=== PATIENT | female | born 1950 | race Caucasian/White ===

== ENCOUNTER 2019-11-15 17:42 | Inpatient (IN) | payer MEDICARE, BC ==
[~2019-11-15] VITALS: Ht 157.5 cm; Wt 52.6 kg
[2019-11-15 18:35] LABS: BASOPHILS 0.3 % (0-2); EOSINOPHILS 6.8 % (0-7); HEMATOCRIT 43.4 % (36.0-48.0); HEMOGLOBIN 14.5 g/dL (12-16); IMMATURE GRANULOCYTES 0.1 % (0-5); LYMPHOCYTES 21.6 % (15-50); MCHC 33.4 g/dL (31.0-37.0); MCV 95.8 fL (80.0-100.0); MEAN PLATELET VOLUME 9.2 fL (7.4-10.4); MONOCYTES 7.6 % (2-11); NEUTROPHILS 63.6 % (40-80); PLATELET COUNT 277 10x3/uL (130-400); RBC 4.53 10x6/uL (4.00-5.40); RDW 13.2 % (11.5-14.5)
[2019-11-15 18:43] LABS: BACTERIA MANY HPF (NONE SEEN); BILIRUBIN NEGATIVE (NEGATIVE); GRANULAR CAST 0-5 LPF (NONE SEEN); KETONE NEGATIVE (NEGATIVE); NITRITE POSITIVE (NEGATIVE); UROBILINOGEN NORMAL mg/dL (< 2)
[2019-11-15 18:44] LABS: CALC OSMOLALITY 275 mosm/kg (275-300); CALCIUM 9.6 mg/dL (8.5-10.1); CARBON DIOXIDE 30.4 mmol/L (21.0-32.0); CHLORIDE - SERUM 102 mmol/L (98-107); CREATININE - SERUM 0.9 mg/dL (0.6-1.3); GLUCOSE 105 mg/dL (74-106); POTASSIUM - SERUM 3.9 mmol/L (3.5-5.1); SODIUM 137 mmol/L (136-145); UREA NITROGEN 19 mg/dL (7-18); eGFR NON AFRICAN AMERICAN 66 mL/min (90-120)
[2019-11-15 18:53] LABS: ALBUMIN 4.1 g/dL (3.4-5.0); ALKALINE PHOSPHATASE 91 U/L (30-120); ALT (SGPT) 17 U/L (10-68); AMYLASE - SERUM 69 U/L (25-115); BILIRUBIN - TOTAL 0.34 mg/dL (0.2-1.3); LIPASE 80 U/L (73-393); PROTEIN - SERUM 7.8 g/dL (6.4-8.2)
[2019-11-15 18:56] LABS: TROPONIN-I < 0.017 ng/mL (0.000-0.060)
[2019-11-15 21:01] VITALS: BP 135/56
--- NOTE | 2019-11-15 22:50 | NUR ---
PT AMBULATED TO RESTROOM AT THIS TIME. VOIDED URINE ONLY. PERFORMS SELF CARE.
[2019-11-16 00:29] VITALS: BP 139/67
[2019-11-16 01:42] VITALS: BP 143/54
--- NOTE | 2019-11-16 01:45 | NUR ---
COVID SWAB SENT TO LAB AT THIS TIME.
[2019-11-16 06:30] LABS: BASOPHILS 0.1 % (0-2); EOSINOPHILS 0.5 % (0-7); HEMATOCRIT 38.8 % (36.0-48.0); HEMOGLOBIN 12.7 g/dL (12-16); IMMATURE GRANULOCYTES 0.2 % (0-5); LYMPHOCYTES 15.7 % (15-50); MCH 31.4 pg (26.0-34.0); MCHC 32.7 g/dL (31.0-37.0); MEAN PLATELET VOLUME 9.5 fL (7.4-10.4); MONOCYTES 4.3 % (2-11); NEUTROPHILS 79.2 % (40-80); PLATELET COUNT 241 10x3/uL (130-400); RBC 4.04 10x6/uL (4.00-5.40); RDW 13.4 % (11.5-14.5); WBC 9.9 10x3/uL (4.8-10.8)
[2019-11-16 06:43] LABS: ALBUMIN 3.2 g/dL (3.4-5.0); ALKALINE PHOSPHATASE 77 U/L (30-120); ALT (SGPT) 14 U/L (10-68); BILIRUBIN - TOTAL 0.36 mg/dL (0.2-1.3); CALC OSMOLALITY 273 mosm/kg (275-300); CALCIUM 8.5 mg/dL (8.5-10.1); CARBON DIOXIDE 25.5 mmol/L (21.0-32.0); CHLORIDE - SERUM 105 mmol/L (98-107); CREATININE - SERUM 0.5 mg/dL (0.6-1.3); GLUCOSE 120 mg/dL (74-106); MAGNESIUM - SERUM 2.2 mg/dL (1.8-2.4); POTASSIUM - SERUM 4.3 mmol/L (3.5-5.1); PROTEIN - SERUM 6.4 g/dL (6.4-8.2); SODIUM 136 mmol/L (136-145); UREA NITROGEN 15 mg/dL (7-18); eGFR NON AFRICAN AMERICAN > 90 mL/min (90-120)
[2019-11-16 06:45] LABS: INR 1.06 (0.85-1.17); PROTIME 13.8 SECONDS (11.6-15.0)
--- NOTE | 2019-11-16 09:37 | NUR ---
NOTIFIED OFFICE OF [facility] CONSULT
[2019-11-16 11:52] VITALS: BP 142/60
--- NOTE | 2019-11-16 13:04 | NUR ---
ASSISTED PT WITH BEDPAN. PT DENIES FURTHER NEEDS.
--- NOTE | 2019-11-16 17:19 | NUR ---
PT BEDDING CHANGED, GOWN CHANGED, FRESH BLANKETS PROVIDED. MOUTH SWAB PROVIDED. PT REPORTS SHE IS NOW ABLE TO PASS GAS.
[2019-11-16 23:05] VITALS: BP 122/42
--- NOTE | 2019-11-16 23:30 | NUR ---
RECEIVED PT TO FLOOR FROM ER VIA WHEELCHAIR. NG TUBE TO LIS. PT UP AD FROY. DENIES PAIN AT THIS TIME. REVIEWED HOME MEDS AND HISTORY. NO NEEDS. WILL CONTINUE TO MONITOR.
[2019-11-17 02:41] VITALS: BMI 21.2
[2019-11-17 05:36] VITALS: BP 147/50
[2019-11-17 06:54] LABS: BASOPHILS 0.1 % (0-2); EOSINOPHILS 5.4 % (0-7); HEMATOCRIT 40.8 % (36.0-48.0); HEMOGLOBIN 13.4 g/dL (12-16); IMMATURE GRANULOCYTES 0.1 % (0-5); LYMPHOCYTES 25.5 % (15-50); MCH 31.8 pg (26.0-34.0); MCHC 32.8 g/dL (31.0-37.0); MCV 96.7 fL (80.0-100.0); MEAN PLATELET VOLUME 10.5 fL (7.4-10.4); MONOCYTES 7.7 % (2-11); NEUTROPHILS 61.2 % (40-80); PLATELET COUNT 251 10x3/uL (130-400); RBC 4.22 10x6/uL (4.00-5.40); RDW 13.3 % (11.5-14.5); WBC 8.4 10x3/uL (4.8-10.8)
[2019-11-17 07:20] LABS: ALBUMIN 3.2 g/dL (3.4-5.0); ALKALINE PHOSPHATASE 80 U/L (30-120); ALT (SGPT) 13 U/L (10-68); BILIRUBIN - TOTAL 0.45 mg/dL (0.2-1.3); CALCIUM 8.9 mg/dL (8.5-10.1); CARBON DIOXIDE 23.4 mmol/L (21.0-32.0); CHLORIDE - SERUM 105 mmol/L (98-107); CREATININE - SERUM 0.6 mg/dL (0.6-1.3); PROTEIN - SERUM 6.5 g/dL (6.4-8.2); SODIUM 138 mmol/L (136-145); UREA NITROGEN 14 mg/dL (7-18); eGFR NON AFRICAN AMERICAN > 90 mL/min (90-120)
[2019-11-17 07:23] LABS: CALC OSMOLALITY 274 mosm/kg (275-300); GLUCOSE 61 mg/dL (74-106); POTASSIUM - SERUM 3.6 mmol/L (3.5-5.1)
[2019-11-17 09:21] VITALS: BP 130/53
--- NOTE | 2019-11-17 12:23 | NUR ---
NGT REMOVED AT THIS TIME WITH NO PROBLEMS.
[2019-11-17 13:25] VITALS: Ht 157.5 cm; Wt 52.6 kg
--- NOTE | 2019-11-17 14:07 | NUR ---
PATIENT TOLERATED REGULAR DIET WITH NO PAIN, NAUSEA, OR VOMITTING. IV INTACT. STATES SHE IS READY TO BE DISCHARGED. DID HAVE 2 SMALL SOLID BM'S THIS AM. WILL CONTINUE TO MONITOR. CALL LIGHT WITHIN REACH.
[2019-11-17 14:25] VITALS: BP 127/43
--- NOTE | 2019-11-17 16:06 | MORECARE ---
CASE MANAGEMENT DISCHARGE SUMMARY PATIENT: MARIA ANTONIA HILL UNIT: [id number] ADM DATE: 11/15/19 AGE: 68 : 48 SEX: F ROOM/BED: D.2228 AUTHOR: BERT MCCLENDON PHYSICIAN: REFERRING PHYSICIAN: LEIGH CHEN MD DATE OF SERVICE: 11/17/19 Discharge Plan Patient Name: MARIA ANTONIA HILL Facility: [facility]:[place] : 1950 Planned Disposition: Home Anticipated Discharge Date: 11/18/19 Discharge Date: Expected LOS: 3 Initial Reviewer: [email or web address] Initial Review Date: 11/15/2019 Generated: 11/17/19 5:06 pm Patient Name: MARIA ANTONIA HILL Page [id number] at 1606 All edits/amendments must be made on the electronic document DICTATION DATE: 11/17/191605 LICENSED VOCATIONAL NURSE: YEHUDA 11/17/191605 RPT#: [id number] DC DATE: STATUS: ADM IN [facility] [address] [place] [address] END OF REPORT
--- NOTE | 2019-11-17 16:13 | MORECARE ---
CASE MANAGEMENT DISCHARGE SUMMARY PATIENT: MARIA ANTONIA HILL UNIT: [id number] ADM DATE: 11/15/19 AGE: 68 : 48 SEX: F ROOM/BED: D.2228 AUTHOR: BERT MCCLENDON PHYSICIAN: REFERRING PHYSICIAN: LEIGH CHEN MD DATE OF SERVICE: 11/17/19 Discharge Plan Patient Name: MARIA ANTONIA HILL Facility: [facility]:[place] : 1950 Planned Disposition: Home Anticipated Discharge Date: 11/18/19 Discharge Date: Expected LOS: 3 Initial Reviewer: [email or web address] Initial Review Date: 11/15/2019 Generated: 11/17/19 5:13 pm DCPIA - Discharge Planning Initial Assessment Updated by [email or web address]: Gume Moran on 11/17/19 4:11 pm * Is the patient Alert and Oriented? Yes * How many steps to enter\exit or inside your home? RAMP * PCP Dr Viera * Pharmacy [facility] in [place] * Preadmission Environment Home with Family * ADLs Independent * Equipment Cane Walker * Other Equipment none * List name and contact numbers for known caregivers / representatives who currently or will assist patient after discharge: Raul Kamara - [phone] * Verbal permission to speak to the caregivers and representatives has been obtained from the patient. Yes * Community resources currently utilized None * Please name any agencies selected above. none * Additional services required to return to the preadmission environment? No * Can the patient safely return to the preadmission environment? Yes * Has this patient been hospitalized within the prior 30 days at any hospital? No Last DP export: 11/17/19 3:07 Patient Name: MARIA ANTONIA HILL Page [id number] at 1613 All edits/amendments must be made on the electronic document DICTATION DATE: 11/17/191612 SERVICING REP: YEHUDA 11/17/191612 RPT#: [id number] DC DATE: STATUS: ADM IN [facility] [address] [place] [address] END OF REPORT
--- NOTE | 2019-11-17 16:20 | MORECARE ---
CASE MANAGEMENT DISCHARGE SUMMARY PATIENT: MARIA ANTONIA HILL UNIT: [id number] ADM DATE: 11/15/19 AGE: 68 : 48 SEX: F ROOM/BED: D.2228 AUTHOR: DANELLE,DOC PHYSICIAN: REFERRING PHYSICIAN: LEIGH CHEN MD DATE OF SERVICE: 11/17/19 Discharge Plan Patient Name: MARIA ANTONIA HILL Facility: [facility]:[place] : 1950 Planned Disposition: Home Anticipated Discharge Date: 11/18/19 Discharge Date: Expected LOS: 3 Initial Reviewer: [email or web address] Initial Review Date: 11/15/2019 Generated: 11/17/19 5:20 pm Comments DCP- Discharge Planning Updated by [email or web address]: Gume Moran on 11/17/19 3:[address] Patient Name: MARIA ANTONIA HILL Admission Status: ER Accout number: [id number] Admission Date: 11-15-2019 : 1950 Admission Diagnosis: Attending: BONY Current LOS: 2 Anticipated DC Date: 11-18-2019 Planned Disposition: Home Primary Insurance: MEDICARE A & B Discharge Planning Comments: CM met with patient to complete DC plan and needs. CM educated patient on the CM role and verbal consent was given by patient to complete assessment. CM verified patient's address, phone number, and emergency contact phone numbers. Patient lives at home with family. At discharge patient plans to return home and feels this is a safe discharge. The patient has 0 steps to navigate to enter the home and it is safe. Patient fills her medications at [facility]. CM discussed availability of home health, rehab services, and medical equipment. Patient declined HHS, SNF, IPR, and DME. The patient neither mentioned nor discussed any other discharge needs and she is satisfied with DC plan. Transportation provider at discharge will be her son, Huey Kamara ([phone]). CM will continue to follow and will assist as needed with dc plans/needs. Senior Unix Administrator: Gume Moran DCPIA - Discharge Planning Initial Assessment Updated by [email or web address]: Gume Moran on 11/17/19 4:11 pm * Is the patient Alert and Oriented? Yes * How many steps to enter\exit or inside your home? RAMP * PCP Dr Viera * Pharmacy [facility] in [place] * Preadmission Environment Home with Family * ADLs Independent * Equipment Cane Walker * Other Equipment none * List name and contact numbers for known caregivers / representatives who currently or will assist patient after discharge: Raul Kamara - [phone] * Verbal permission to speak to the caregivers and representatives has been obtained from the patient. Yes * Community resources currently utilized None * Please name any agencies selected above. none * Additional services required to return to the preadmission environment? No * Can the patient safely return to the preadmission environment? Yes * Has this patient been hospitalized within the prior 30 days at any hospital? No Last DP export: 11/17/19 3:13 Patient Name: MARIA ANTONIA HILL Page [id number] at 1620 All edits/amendments must be made on the electronic document DICTATION DATE: 11/17/191619 MOTORBIKE COURIER: YEHUDA 11/17/191619 RPT#: [id number] DC DATE: STATUS: ADM IN [facility] [address] [place] [address] END OF REPORT
--- NOTE | 2019-11-17 16:32 | NUR ---
PATIENT RECIEVED DC INSTRUCTIONS. VERBALIZED UNDERSTANDING WITH NO QUESTIONS AT THIS TIME. IV REMOVED WITH CATH TIP INTACT. AMBULATED WITH PATIENT DOWN TO ER WITH PERSONAL BELONGINGS TO PRIVATE VEHICLE.
--- NOTE | 2019-11-19 09:12 | MORECARE ---
CASE MANAGEMENT DISCHARGE SUMMARY PATIENT: MARIA ANTONIA HILL UNIT: [id number] ADM DATE: 11/15/19 AGE: 68 : 48 SEX: F ROOM/BED: D.2228 AUTHOR: BERT MCCLENDON PHYSICIAN: REFERRING PHYSICIAN: LEIGH CHEN MD DATE OF SERVICE: 11/19/19 Discharge Plan Patient Name: MARIA ANTONIA HILL Facility: [facility]:[place] : 1950 Planned Disposition: Home Anticipated Discharge Date: 11/18/19 Discharge Date: 11/17/2019 Expected LOS: 3 Initial Reviewer: [email or web address] Initial Review Date: 11/15/2019 Generated: 11/19/19 10:11 am Comments DCP- Discharge Planning Updated by [email or web address]: Gume Moran on 11/17/19 3:[address] Patient Name: MARIA ANTONIA HILL Admission Status: ER Accout number: [id number] Admission Date: 11-15-2019 : 1950 Admission Diagnosis: Attending: BONY Current LOS: 2 Anticipated DC Date: 11-18-2019 Planned Disposition: Home Primary Insurance: MEDICARE A & B Discharge Planning Comments: CM met with patient to complete DC plan and needs. CM educated patient on the CM role and verbal consent was given by patient to complete assessment. CM verified patient's address, phone number, and emergency contact phone numbers. Patient lives at home with family. At discharge patient plans to return home and feels this is a safe discharge. The patient has 0 steps to navigate to enter the home and it is safe. Patient fills her medications at [facility]. CM discussed availability of home health, rehab services, and medical equipment. Patient declined HHS, SNF, IPR, and DME. The patient neither mentioned nor discussed any other discharge needs and she is satisfied with DC plan. Transportation provider at discharge will be her son, Huey Kamara ([phone]). CM will continue to follow and will assist as needed with dc plans/needs. Cooler Room Worker: Gume Moran DCPIA - Discharge Planning Initial Assessment Updated by [email or web address]: Gume Moran on 10/10/20 4:11 pm * Is the patient Alert and Oriented? Yes * How many steps to enter\exit or inside your home? RAMP * PCP Dr Viera * Pharmacy [facility] in [place] * Preadmission Environment Home with Family * ADLs Independent * Equipment Cane Walker * Other Equipment none * List name and contact numbers for known caregivers / representatives who currently or will assist patient after discharge: Raul Kamara - [phone] * Verbal permission to speak to the caregivers and representatives has been obtained from the patient. Yes * Community resources currently utilized None * Please name any agencies selected above. none * Additional services required to return to the preadmission environment? No * Can the patient safely return to the preadmission environment? Yes * Has this patient been hospitalized within the prior 30 days at any hospital? No Last DP export: 11/17/19 3:20 Patient Name: MARIA ANTONIA HILL Page [phone] at 0912 All edits/amendments must be made on the electronic document DICTATION DATE: 11/19/19910 SALON STYLIST: YEHUDA 11/19/19910 RPT#: [id number] DC DATE:11/17/19 STATUS: DIS IN [facility] [address] [place] [address] END OF REPORT
== END 2019-11-17 16:40 | disposition home or self-care (01) | DRG 389 ==
LOC: D.ER 17:42 → D.MS 22:16 → D.EDHOLD 22:16 → D.MS 11-16 19:31
PROVIDERS: Emergency Medicine; Family Medicine; ADMIT Family Medicine; ATTEND Family Medicine
DX: K56.609 Unspecified intestinal obstruction, unspecified as to partial versus complete obstruction (principal); N39.0 Urinary tract infection, site not specified; F41.9 Anxiety disorder, unspecified; F43.10 Post-traumatic stress disorder, unspecified